=== PATIENT | female | born 1985 ===

== ENCOUNTER 2017-05-06 14:24 | Emergency (ER) | payer SELFPAY ==
[2017-05-06 14:43] VITALS: BP 126/58
--- NOTE | 2017-05-06 15:34 | RAD ---
Indication: Right thumb pain. 3 views of the right thumb demonstrates no fracture. No other bone or joint abnormality is identified. IMPRESSION: No fracture of the right thumb is noted.
--- NOTE | 2017-05-06 15:42 | UC ---
Fransisca Damon Nilda, scribed for Dave Quan MD on 05/06/17 at 1504 . Hand/Wrist HPI - HPI Summary HPI Summary: This patient is a 31 year old F presenting to [facility] with a chief complaint of right thumb pain (throbbing, sharp, and aching) s/p opening difficult packaging earlier today. The patient rates the pain 7/10 in severity. Symptoms aggravated by palpation and movement, but alleviated by rest. Patient reports that she heard an audible "pop" in her right thumb. She denies previous trauma to right thumb and decreased range of motion. - History Of Current Complaint Chief Complaint: UCUpperExtremity Stated Complaint: FINGER INJURY Time Seen by Provider: 05/06/17 14:43 Hx Obtained From: Patient Hx Last Menstrual Period: 2.5 weeks ago Mechanism Of Injury: while opening difficult packaging Onset/Duration: Sudden Onset, Lasting Hours, Still Present Severity Currently: Moderate Pain Intensity: 7 Pain Scale Used: 0-10 Numeric Character Of Pain: Sharp, Aching, Throbbing Aggravating Factor(s): Movement, Other - palpation Alleviating Factor(s): Rest Associated Signs And Symptoms: Positive: Other - audible pop upon injury; negative decreased ROM and previous injury - Allergies/Home Medications Allergies/Adverse Reactions: Allergies Allergy/AdvReac Type Severity Reaction Status Date / Time Hydrocodone Allergy itch Verified 05/06/17 14:34 Home Medications: Home Medications Bcp 1 tab PO DAILY 05/06/17 [History Confirmed 05/06/17] Ibuprofen TAB* [Motrin TAB* 800 MG] 800 mg PO Q6H PRN 05/06/17 [History Confirmed 05/06/17] Lorazepam [Ativan 0.5 MG TAB] 0.5 mg PO DAILY PRN 05/06/17 [History Confirmed ] PMH/Surg Hx/FS Hx/Imm Hx Previously Healthy: Yes - Surgical History Surgical History: Yes Surgery Procedure, Year, and Place: appy. ganglion cyst removal R 3rd digit - Family History Known Family History: Positive: Hypertension, Diabetes, Other - [place] Family History: [place] - Social History Occupation: Employed Full-time Alcohol Use: Rare Substance Use Type: None Smoking Status (MU): Heavy Every Day Tobacco Smoker Amount Used/How Often: 3/4-1PPD Household Exposure Type: Cigarettes Review of Systems Motor: Other - negative decreased ROM Musculoskeletal: Other: - right thumb pain with audible "pop" sound open injury ; no previous trauma to right thumb All Other Systems Reviewed And Are Negative: Yes Physical Exam Triage Information Reviewed: Yes Vital Signs: Initial Vital Signs Temp 98.3 F 05/06/17 14:33 Pulse 79 05/06/17 14:33 Resp 18 05/06/17 14:33 BP 126/58 05/06/17 14:33 Pulse Ox 99 05/06/17 14:33 Vital Signs Reviewed: Yes - Additional Comments General: well-appearing, no pain distress Skin: warm, color reflects adequate perfusion, dry Head: normal Eyes: EOMI, GEO ENT: normal Neck: supple, nontender Respiratory: CTA, breath sounds present Cardiovascular: RRR Abdomen: soft, nontender Bowel: present Musculoskeletal: FROM of right thumb, Pain with flexion and extension, Tender on dorsum of proximal thumb, Collateral ligaments are nontender to palpation Neurological: normal, sensory/motor intact, A&O x3 Psychological: affect/mood appropriate Diagnostics - Radiology Right Thumb XR Radiology Interpretation Completed By: Radiologist - Right Thumb XR, per radiologist, reveals no fracture to right thumb is noted. Dr. Quan has reviewed this radiology report and agrees. Re-Evaluation - Re-Evaluation First Eval Re-Evaluation Time: 15:19 Comment: Reviewed XR with patient. Hand/Wrist Course/Dx - Course Course Of Treatment: Right Thumb XR, per radiologist, reveals no fracture to right thumb is noted. Dr. Quan has reviewed this radiology report and agrees. COLLATERAL LIGAMENTS INTACT TO EXAM. F/U WITH ORTHO; RETURN IF WORSE. - Differential Dx/Diagnosis Provider Diagnoses: RIGHT THUMB STRAIN Discharge - Discharge Plan Condition: Stable Disposition: HOME Prescriptions: oxyCODONE/Acetamin 5/325 MG* [Percocet 5/325 TAB*] 1 tab PO Q4H PRN #15 tab MDD 6 PRN Reason: Pain Patient Education Materials: Finger Sprain (ED) Forms: *Work Release Referrals: [facility] [Provider Group] Srinivas Villagomez MD [Primary Care Provider] - Additional Instructions: FOLLOW UP WITH ORTHOPEDICS. GET RECHECKED FOR ANY WORSENING OF YOUR CONDITION OR QUESTIONS OR CONCERNS. The documentation as recorded by the scribe, Gongora,Ann Marie accurately reflects the service I personally performed and the decisions made by me, Dave Quna MD.
== END 2017-05-06 15:38 | disposition home or self-care (01) ==
LOC: UCEAST 14:24
DX: S56.311A Strain of extensor or abductor muscles, fascia and tendons of right thumb at forearm level, initial encounter (principal); S56.011A Strain of flexor muscle, fascia and tendon of right thumb at forearm level, initial encounter; Z88.5 Allergy status to narcotic agent; F17.290 Nicotine dependence, other tobacco product, uncomplicated; X50.9XXA Other and unspecified overexertion or strenuous movements or postures, initial encounter; Y92.9 Unspecified place or not applicable
CPT/HCPCS: 99201; G0463

== ENCOUNTER 2019-01-23 23:35 | Emergency (ER) | payer BC ==
[2019-01-24] MEDS ORDERED: Morphine 4 MG/ML VIAL (1 ml) 4 MG/ML VIAL IM ONE (02:39)
--- NOTE | 2019-01-24 03:21 | ED ---
Lower Extremity - HPI Summary HPI Summary: Pt is a 33 y/o F presenting to the ED with a chief complaint of L hip pain initially onset a couple of months ago, but worsened over the past week w/ recent fall. She reports walking with a lip, inability to bear weight, and some slight back pain. She denies fevers. She notes that she has been trying to figure out with her PCP what is causing this pain, with a plan to have an MRI done soon. - History of Current Complaint Chief Complaint: EDExtremityLower Stated Complaint: HIP PAIN PER PT Time Seen by Provider: 01/24/19 02:17 Hx Obtained From: Patient Hx Last Menstrual Period: 2.5 weeks ago Mechanism Of Injury: Unknown Onset/Duration: Still Present Severity Initially: Moderate Severity Currently: Severe Pain Intensity: 8 Pain Scale Used: 0-10 Numeric Timing: Constant, Lasting Days Location: Is Discrete @ - L hip Associated Signs And Symptoms: Negative: Fever Aggravating Factor(s): Movement, Weight Bearing Alleviating Factor(s): Nothing Able to Bear Weight: Yes - w/ reported limp - Allergies/Home Medications Allergies/Adverse Reactions: Allergies Allergy/AdvReac Type Severity Reaction Status Date / Time hydrocodone Allergy Itching Verified 01/23/19 23:42 PMH/Surg Hx/FS Hx/Imm Hx Previously Healthy: Yes Endocrine/Hematology History: Denies: Hx Diabetes Cardiovascular History: Reports: Hx Hypertension Denies: Hx Congestive Heart Failure - Surgical History Surgery Procedure, Year, and Place: appy. ganglion cyst removal R 3rd digit Infectious Disease History: No Infectious Disease History: Denies: Traveled Outside the [place] in Last 30 Days - Family History Known Family History: Positive: Hypertension, Diabetes, Other - [place] Family History: [place] - Social History Alcohol Use: Rare Hx Substance Use: No Substance Use Type: Reports: None Hx Tobacco Use: Yes Smoking Status (MU): Heavy Every Day Tobacco Smoker Amount Used/How Often: 3/4-1PPD Review of Systems Negative: Fever Positive: Arthralgia - L hip, Myalgia - back pain, Decreased ROM All Other Systems Reviewed And Are Negative: Yes Physical Exam - Summary Physical Exam Summary: Constitutional: Well-developed, Well-nourished, Alert. (-) Distressed Skin: Warm, Dry HENT: Normocephalic; Atraumatic Eyes: Conjunctiva normal Neck: Musculoskeletal ROM normal neck. (-) JVD, (-) Stridor, (-) Tracheal deviation Cardio: Rhythm regular, rate normal, Heart sounds normal; Intact distal pulses; Radial pulses are 2+ and symmetric. (-) Murmur Pulmonary/Chest wall: Effort normal. (-) Respiratory distress, (-) Wheezes, (-) Rales Abd: Soft, (-) tenderness, (-) Distension, (-) Guarding, (-) Rebound Musculoskeletal: (-) Edema Lymph: (-) Cervical adenopathy Neuro: Alert, Oriented x3 Psych: Mood and affect Normal Triage Information Reviewed: Yes Vital Signs On Initial Exam: Initial Vitals Temp Pulse Resp BP Pulse Ox 97.9 F 108 16 149/96 98 01/23/19 23:38 01/23/19 23:38 01/23/19 23:38 01/23/19 23:38 01/23/19 23:38 Vital Signs Reviewed: Yes Procedures - Sedation Patient Received Moderate/Deep Sedation with Procedure: No Diagnostics - Vital Signs Vital Signs Temp Pulse Resp BP Pulse Ox 01/24/19 02:43 16 01/23/19 23:38 97.9 F 108 16 149/96 98 - Laboratory Lab Statement: Any lab studies that have been ordered have been reviewed, and results considered in the medical decision making process. - Radiology Hip XR Radiology Interpretation Completed By: ED Physician Summary of Radiographic Findings: No fracture. 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 Pending official radiology report. Lower Extremity Course/Dx - Course Course Of Treatment: Patient is here with bilateral hip pain has been present for a couple of months. Patient did have a fall roughly 8 days ago which made her pain worse. Patient has been able to ambulate. Patient had a pelvic x-ray which showed no fracture. Patient is following up with her primary care doctor today for an MRI. - Diagnoses Provider Diagnoses: Bilateral hip pain Discharge ED - Sign-Out/Discharge Documenting (check all that apply): Patient Departure - Discharge Plan Condition: Stable Disposition: HOME Prescriptions: traMADol TAB* [Ultram*] 50 mg PO Q8HR #8 tab MDD 150 mg Patient Education Materials: Hip Pain (ED) Referrals: Srinivas Villagomez MD [Primary Care Provider] - Additional Instructions: Please follow up with your primary care provider today to schedule an MRI for your hip. Return to the emergency department with any new or worsening symptoms. - Billing Disposition and Condition Condition: STABLE Disposition: Home - Attestation Statements Document Initiated by Stephonibe: Yes Documenting Scribe: Joyce García Provider For Whom Jaya is Documenting (Include Credential): Luis Sue MD. Scribe Attestation: Joyce Damon, scribed for Luis Sue MD. on 01/24/19 at 0514. Scribe Documentation Reviewed: Yes Provider Attestation: The documentation as recorded by the stephonibe, Joyce García accurately reflects the service I personally performed and the decisions made by , Luis Sue MD. Status of Scribe Document: Viewed
[2019-01-24 03:38] VITALS: BP 149/76
== END 2019-01-24 03:30 | disposition home or self-care (01) ==
LOC: ED 23:35
DX: M25.552 Pain in left hip (principal); M25.551 Pain in right hip; M16.0 Bilateral primary osteoarthritis of hip; M47.898 Other spondylosis, sacral and sacrococcygeal region; I10 Essential (primary) hypertension; F17.200 Nicotine dependence, unspecified, uncomplicated; Z88.5 Allergy status to narcotic agent
CPT/HCPCS: 72170; 96372; 99282; J2270